=== PATIENT | female | born 1945 | race Caucasian/White ===

== ENCOUNTER → 2017-01-05 | Day surgery (SDC) | payer MEDICARE ==
[~2017-01-05] MED LIST: ADVAIR 250-501 EACH; ADVIL200 M2 PO; ALBUTEROL17 GM INH; ASPIRIN81 M1; ASPIRIN81 M2 PO; ASPIRIN81 MG PO; CALCIUM + D 6001 TA1 PO; CELEBREX100 MG PO; CYCLOBENZAPRINE5 MG PO; DISCONTINUED MED; FLONASE ALLERG9.9 ML; LEVOXYL125 MC1 PO; NAPROXEN PO; PROVENTIL17 GM; SALINE NOSE SPR45 M1; SYNTHROID125 PO; SYNTHROID137 MCG; TYLOX 5-500 CA1 EACH PO; VITAMIN C PO; VYTORIN 10-20 M1 TAB PO; VYTORIN 10/10 M1 TAB PO; ZYRTEC10 M1 PO; ZYRTEC10 M2 PO
--- NOTE | ~2017-01-05 | OR ---
Unit #: [id number] #: [id number] Patient: RITIKA QUINTANA [id number] [address] [place], [place] [address] [id number] O MR#: [id number] NAME: RITIKA QUINTANA. ROOM: Date of Procedure: 01/05/2017 Admission Date: 01/05/2017 Surgeon: Delano Bey M.D. : 1945 Attending Physician: Delano Bey M.D. Primary Care Physician: Robert Kumar M.D. OPERATIVE REPORT PREOPERATIVE DIAGNOSIS Colorectal cancer screening in an average-risk patient. PROCEDURE PERFORMED Colonoscopy up to cecum with excellent preparation and good visualization. POSTOPERATIVE DIAGNOSES Mild sigmoid and descending colon diverticulosis. Otherwise, normal examination up to cecum. The quality of the prep was excellent. No polyps were present or seen. RECOMMENDATIONS Repeat colonoscopy in 10 years. SEDATION USED MAC. DESCRIPTION OF PROCEDURE Following detailed explanation of potential risks and complications of a colonoscopy, namely perforation, bleeding, and complication related to sedation, the patient was brought to GI lab and laid in the left lateral decubitus position. A digital rectal examination was performed which was normal. Lubricated tip of the Olympus video colonoscope was inserted through the anus and advanced under direct vision. The scope was advanced past rectosigmoid into descending colon. Scant small diverticula were noted in this area. The scope tip was then navigated all the way up to cecum with visualization of the ileocecal valve and the appendiceal orifice. Preparation was excellent with good visualization and photodocumentation was obtained. Successive segments of the colonic mucosa were examined upon withdrawal and appeared unremarkable. There being no polyps, mass lesions, or AVMs. Other than the scant diverticula seen in the left side, no other abnormalities were noted. The patient did not have any hemorrhoids at anal verge. The scope was then withdrawn and the patient returned to recovery area. She tolerated the procedure without any postprocedure complications. Dictated by... Troy Cummings/axel Unit #: [id number] #: [id number] Patient: RITIKA QUINTANA TD: 01/05/2017 10:45 JOB #: [id number] OPERATIVE REPORT Page 1 of 1 X Delano Bey MD PROCEDURE OPERATIVE NOTE
== END | disposition home or self-care (01) ==
LOC: COPS 07:45
PROVIDERS: Internal Medicine Gastroenterology
PROC: 0DJD8ZZ Inspection of Lower Intestinal Tract, Via Natural or Artificial Opening Endoscopic (ICD-10-PCS; principal; 2017-01-05 09:30)
DX: Z12.11 Encounter for screening for malignant neoplasm of colon (principal); K57.30 Diverticulosis of large intestine without perforation or abscess without bleeding; K21.9 Gastro-esophageal reflux disease without esophagitis; R13.10 Dysphagia, unspecified; E03.9 Hypothyroidism, unspecified; E78.5 Hyperlipidemia, unspecified; J45.909 Unspecified asthma, uncomplicated; Z79.899 Other long term (current) drug therapy; Z87.09 Personal history of other diseases of the respiratory system; Z87.440 Personal history of urinary (tract) infections; Z90.710 Acquired absence of both cervix and uterus; Z88.8 Allergy status to other drugs, medicaments and biological substances; Z88.1 Allergy status to other antibiotic agents

== ENCOUNTER → 2017-04-24 | Outpatient (CLI) | payer MEDICARE ==
--- NOTE | ~2017-04-24 | MY11 ---
[facility] A Service [facility] RADIOLOGY TEXT RESULTS PATIENT: RITIKA QUINTANA LOCATION: [facility] : 43 UNIT #: [id number] AGE: [address]: Alivia Alexander MD SEX: F ORDER DR: [id number] [address] [address] [id number] O MR#: [id number] Acc #: [id number] NAME: RITIKA QUINTANA : 1945 SEX: F STUDY DATE/TIME: 04/24/2017 8:47 UNIT: [facility] ROOM: STUDY DESCRIPTION: MY Mammogram Screening Dig Rogelio Attending Physician: Alivia Alexander M.D. Referring Physician: Alivia Alexander M.D. Ordering Physician: Alivia Alexander M.D. Primary Care Physician: Robert Kumar M.D. MEDICAL IMAGING REPORT This report is preliminary unless electronic signature is present. EXAM Digital screening mammogram, 04/24/2017 HISTORY 71-year-old woman positive family history, sister premenopausal, 2 maternal aunts, maternal grandmother. Annual screening. COMPARISON Mammograms date to 11/10/2005 with most recent 04/14/2016. FINDINGS Digital imaging of each breast was completed utilizing a two-view examination of each breast in craniocaudal and mediolateral-oblique projections. Review and interpretation of digital mammograms include a second review in conjunction with FDA-approved CAD device. There is a normal parenchymal presentation bilaterally consistent with the patient's age. There are no breast masses imaged and no parenchymal asymmetry is visualized. There are no suspicious microcalcifications and I see no focal architectural disturbance. IMPRESSION Negative screening digital mammogram. One-year followup recommended. Patients over the age of 40 are entered into a reminder system with target due date for the next mammogram. A result letter will also be sent to the patient. BIRADS: 1 Negative Dictated by... Boby Worley M.D. THIS IS AN ELECTRONICALLY VERIFIED REPORT [facility] A Service [facility] RADIOLOGY TEXT RESULTS PATIENT: RITIKA QUINTANA LOCATION: [facility] : 43 UNIT #: [id number] AGE: [address]: Alivia Alexander MD SEX: F ORDER DR: Boby Worley M.D. at 04/24/2017 12:09 PM John TD: 04/24/2017 10:29 JOB #: [id number] MEDICAL IMAGING REPORT Page 1 of 1
== END | disposition home or self-care (01) ==
LOC: SMAM 08:04
DX: Z12.31 Encounter for screening mammogram for malignant neoplasm of breast (principal); Z80.3 Family history of malignant neoplasm of breast
CPT/HCPCS: G0202